=== PATIENT | male | born 2005 ===

== ENCOUNTER 2025-02-02 14:53 | Emergency (ER) | payer SELFPAY ==
[2025-02-02 15:18] VITALS: BP 109/57; PULSE 69; RESP 16; TEMP 37; O2SAT 98; BMI 30.3
--- NOTE | 2025-02-02 15:25 | ED.GENADULT ---
HPI - General Adult General Chief complaint: Eye Problems Stated complaint: pink eye Time Seen by Provider: 02/02/25 15:21 Source: patient Mode of arrival: ambulatory Limitations: no limitations History of Present Illness ED Provider: Cipriano Anthony [facility] narrative: 19 yold male presents to the ED for left eye redness with eyelid crusting that was yellow. patient deneis any eye pain, change in vision, headache, recent trauma to the eye, wearing eye contacts, fever, or chills. Patient states no other complaints. Related Data Previous Rx's ?Medication ?Instructions ?Recorded erythromycin 5 mg/gram (0.5 %) eye 0.5 inch ophthalmic (eye) QID 5 02/02/25 ointment days #3.5 grams Allergies Allergy/AdvReac Type Severity Reaction Status Date / Time No Known Allergies Allergy Verified 02/02/25 15:20 Review of Systems Review of Systems: left eye redness, irriatation Yes all other systems are reviewed and are negative [facility] Social History Social History Advance Directives: No Advance Directives Information Provided: Yes Physical Exam ED Vital Signs: Vital Signs - 24 hr 02/02/25 15:18 Temperature 98.6 F Pulse Rate 69 Respiratory Rate 16 Blood Pressure 109/57 L Pulse Oximetry 98 Oxygen Delivery Method Room Air BMI result Body Mass Index 30.3 Const General: cooperative, healthy appearing, comfortable, no acute distress, well developed, alert, awake and Physically active Orientation/consciousness: patient oriented x3 HENMT Head: Yes normal to inspection, Yes No palpable skull fracture present, Yes normocephalic and Yes atraumatic Ears: hearing grossly normal bilaterally, external ears normal, TM's normal bilaterally, TM normal on the right, TM normal on the left, EAC's normal, mastoids normal and no periauricular adenopathy Face and sinus: Yes normal facial exam, Yes sinuses nontender and Yes face symmetric Mouth: Normal oral and palatal mucosa present, lip normal and tongue normal Teeth and gingiva: dentition normal and gingiva normal Throat: Yes posterior oropharynx normal, Yes tonsils normal and Yes uvula midline Eyes Other: Left eye: positive for conjuctiva redness and eyelid crusting. negative for photophoia, hyphema, mass, dendrites, foreign, corneal abrasions, corneal ulcer, or laceration. negative for signs of globe rupture, orbital cellulitits, corneal abrasions, or glaucoma. Right eye is normal. General: appearance normal, both eyes and all related structures Neck Neck: Yes normal visual inspection, Yes full ROM, Yes no lymphadenopathy, Yes no meningeal signs, Yes trachea midline, Yes supple, No anterior neck swelling and No tender Chest Chest palpation & inspection: normal inspection of the chest and normal palpation of entire chest wall Resp Effort & Inspection: normal respiratory effort and able to speak in complete sentences Auscultation: clear to auscultation bilaterally Cardio Jugular venous distension: no JVD Heart sounds: S1 normal heart sound present and S2 normal heart sound present GI Inspection: Yes normal to inspection Palpation (GI): Soft to palpation, not firm, nontender, no guarding and not rigid General: Yes no CVA tenderness Back/Spine/Pelvis Back: no CVA tenderness and No back tenderness Skin General skin exam: no rashes or lesions noted, elasticity normal and turgor normal Neuro General: patient oriented x3, gait normal, tone normal, moves all extremities, Normal light touch and pain sensation, no meningeal signs, no focal motor deficits and CN's II-XI intact bilaterally Extrem General: Yes normal to inspection, Yes full ROM and Yes capillary refill normal Psych Appearance: grossly normal, well kempt and not disheveled Medical Decision Making Medical Decision Making MDM Narrative: 19 yold male presents to ED for left eye redness. Patient woke up with left eye redness with yellow crusting of his eyelids. Patient denies any photophobia, change in vision, loss of vision, recent truama, eye pain, or contact wearing. History physical exam negative for signs of glaucoma,, globe rupture, hyphema, orbital cellulitis, presents with detachment, corneal abrasion, corneal ulcer, or any other life-threatening etiology. Visual acuity 20/20both eyes. Patient explained worrisome signs informed return to the ED immediately. Tonometry eye pressure are normal. Patient uptodate with tetanus. Differential Diagnosis Differential Diagnoses: The differential diagnosis associated with the presentation includes (Conjunctivitis, corneal abrasion. Foreign body) Admission/Observation Consideration of admission/observation: Escalation of care including admission/observation considered Independent Historian Clinical information obtained from an independent historian. History obtained from or confirmed by: Other (Patient) Prescription Management I considered prescription management with: Antibiotic Discharge Plan Discharge Clinical Impression: Bacterial conjunctivitis Patient Disposition: Home, Self-Care Instructions: Conjunctivitis (ED) Additional Instructions: Recommend follow-up with primary care provider. Return to the ED immediately for any worsening eye pain, redness, swelling, discharge, change in vision, loss of vision, headache, dizziness, or any other concerning symptoms. Prescriptions: New erythromycin 5 mg/gram (0.5 %) ointment 0.5 inch ophthalmic (eye) QID 5 Days Qty: 3.5 0RF Referrals: Montrell Corona [Physician, Ophthalmology] - 2 days Referral Note: conjuctivitis Clinical Impression: Bacterial conjunctivitis Stand Alone Forms: Work/School Release Interventions: ED Discharge Assessment Last Done: 02/02/25 15:53 Discharge Date/Time: 02/02/25 15:53 Print Language: [place]
[2025-02-02 15:53] VITALS: BP 109/57; PULSE 69; RESP 16; TEMP 37; O2SAT 98
== END 2025-02-02 15:53 | disposition home or self-care (01) ==
PROVIDERS: Emergency Provider Emergency Medicine
DX: H10.89 Other conjunctivitis (principal)
CPT/HCPCS: 99282; 99283